=== PATIENT | female | born 1935 | race Caucasian/White ===

== ENCOUNTER 2017-08-14 10:36 | Emergency (ER) | payer MEDICARE, OTHER ==
[~2017-08-14] VITALS: Ht 157.5 cm; Wt 46.7 kg
[2017-08-14 11:02] VITALS: BP 148/87
[2017-08-14] MEDS ORDERED: Hydrogen Peroxide 473ml Bottle TOPIC ONE ×2 (11:40→11:45)
[2017-08-14] MEDS ORDERED: Tetanus/Diptheria/Pertussis Vaccine 0.5ml Syr IM ONE (12:00)
[2017-08-14] MEDS ORDERED: Bacitracin Oint UD TOPIC ONE ×2 (12:09→12:15)
[2017-08-14] MEDS ORDERED: CIPROFLOXACIN500 M2 ORAL (13:08)
[2017-08-14] MEDS ORDERED: Ciprofloxacin 500mg tab ORAL ONE (13:15)
[2017-08-14] MEDS ORDERED: Cephalexin 500mg cap ORAL ONE (13:15)
[2017-08-14 13:30] VITALS: BP 140/79
--- NOTE | 2017-08-14 13:33 | Diagnostic Imaging Report ---
Indication: PAIN Technique: 3 views left hand Comparison: none Findings: There are degenerative changes of the second through fifth distal interphalangeal joints. The bones are osteoporotic. No acute fractures. No dislocations. There are degenerative changes of the first and second carpometacarpal joints Impression: No acute bony trauma Degenerative changes, as described
[2017-08-15] MEDS ORDERED: ACETAMINOPHEN-1 EAC1 ORAL (11:27)
--- NOTE | 2017-08-16 08:37 | Emergency Room Report ---
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[employer] When she injured her finger there was active bleeding which was somewhat controlled with pressure Patient denies any injury to the wrist or elbow Pain is 6/10 with touch Denies any loss of consciousness Allergies: Coded Allergies: No Known Allergies (Unverified , 08/14/17) Patient History Past Medical History: see triage record Pertinent Family History: none Last Menstrual Period: n/a Reviewed Nursing Documentation: PMH: Agreed, PSxH: Agreed Nursing Documentation-PMH Hx Cancer: Yes - bilat masection Review of Systems All Other Systems: negative except mentioned in HPI Physical Exam Vital Signs Date Time Temp Pulse Resp B/P (MAP) Pulse Ox O2 Delivery O2 Flow Rate FiO2 08/14/17 10:46 97.9 77 18 148/87 99 Room Air Sp02 EP Interpretation: reviewed, normal General Appearance: well appearing, no apparent distress Head: normocephalic, atraumatic Eyes: bilateral eye PERRL, bilateral eye EOMI ENT: normal pharynx Neck: supple Respiratory: lungs clear, normal breath sounds Cardiovascular #1: regular rate, rhythm Musculoskeletal: other - Patient has laceration distal left index finger, total length is approximately 3 cm, tender - To palpation however the patient has appropriate full flexion extension at the distal digit Neurologic: alert, oriented x3 Skin: other - On the palmar aspect patient has 2 lacerations on either side of the index finger towards the palmar aspect, there is also a flap that is produced in the mid point, total length equals approximately 3 cm Lymphatic: no adenopathy Procedures Laceration/Wound Repair Laceration/Wound Repair : Consent: Verbal Wound Location: upper extremity Wound's Depth, Shape: irregular Wound Length (cm): 3 Wound Explored: clean Irrigated w/ Saline (ccs): 250 Betadine Prep?: Yes Anesthesia: 1% Lidocaine Volume Anesthetic (ccs): 4 Wound Debrided: moderate Wound Repaired With: sutures Suture Size/Type: 5:0 Number of Sutures: 12 Layer Closure?: No Sterile Dressing Applied?: Yes Splint Applied?: Yes Type of Splint Applied: Finger splint applied, it does immobilize the finger well, patient remains Patient Tolerated: Well Complications: None Progress The laceration is fairly irregular, required interrupted sutures on either side of the finger along with the flap, we were able to make appropriate approximation however Medical Decision Making Diagnostic Impression: Primary Impression: finger laceration Additional Impression: open finger fracture ER Course Given the patient's presentation Imaging study was also obtained Copious irrigation and wound care was addressed Please refer to the laceration note for the repair Given the evidence of fracture on the imaging This complicates the presentation making it an open fracture Patient was placed on antibiotics and requires close outpatient followup Other X-Ray Diagnostic Results Other X-Ray Diagnostic Results : X-Ray ordered: left hand # of Views/Limited Vs Complete: 2 View Indication: Pain EP Interpretation: Yes Interpretation: no dislocation, no soft tissue swelling, other - Distal phalangeal fracture second digit Impression: Other - Acute fracture and soft tissue changes Electronically Signed by: Jyoti Freeman DO Last Vital Signs Date Time Temp Pulse Resp B/P (MAP) Pulse Ox O2 Delivery O2 Flow Rate FiO2 08/14/17 13:30 97.9 18 140/79 99 Room Air 08/14/17 10:46 77 Status: improved Disposition: HOME, SELF-CARE Condition: Improved Scripts Ciprofloxacin Hcl* (CIPROFLOXACIN HCL*) 500 Mg Tablet 500 MG ORAL Q12H, #20 TAB 0 Refills Prov: JYOTI FREEMAN D.O. 08/14/17 Referrals: NON PHYSICIAN (PCP) Patient Instructions: Laceration Care, Adult, Finger Fracture, [id number] Additional Instructions: Patient is provided with the discharge instructions notified to follow up with primary doctor in the next 2-3 days otherwise return to the er with any worsening symptoms. Please note that this report is being documented using [employer] technology. This can lead to erroneous entry secondary to incorrect interpretation by the dictating instrument. JYOTI FREEMAN D.O. Aug 16, 2017 08:37
== END 2017-08-14 13:20 | disposition home or self-care (01) ==
LOC: EMR 11:10
DX: S62.601B Fracture of unspecified phalanx of left index finger, initial encounter for open fracture (principal); W27.4XXA Contact with kitchen utensil, initial encounter; Y92.89 Other specified places as the place of occurrence of the external cause; Z23 Encounter for immunization
CPT/HCPCS: 90471; 90715; 99284

== ENCOUNTER 2017-08-15 10:11 | Emergency (ER) | payer MEDICARE, OTHER ==
[~2017-08-15] VITALS: Ht 157.5 cm; Wt 54.4 kg
[~2017-08-15 10:11] MED LIST: CIPROFLOXACIN500 M2 ORAL
[2017-08-15 11:04] VITALS: BP 122/70
[2017-08-15] MEDS ORDERED: ACETAMINOPHEN-1 EAC1 ORAL (11:27)
[2017-08-15 11:30] VITALS: BP 122/70
--- NOTE | 2017-08-15 12:17 | Emergency Room Report ---
History of Present Illness General Chief Complaint: Wound Recheck/Suture Removal Source: Patient Present Illness HPI [id number] presents for wound check had lac repair yesterday of left index finger Was instructed to followup with PMD in 4 days, keep bandage on Patient states that its still bleeding States still has a lot of pain from lac, pain med not helping Denies fever/chills, pus drainage from wound Xray was negative for fx Allergies: Coded Allergies: No Known Allergies (Unverified , 08/14/17) Patient History Past Medical History: see triage record, old chart reviewed Past Surgical History: none Pertinent Family History: none Now: No Immunizations: UTD Reviewed Nursing Documentation: PMH: Agreed, PSxH: Agreed Nursing Documentation-PMH Hx Cancer: Yes - bilat masection Review of Systems All Other Systems: negative except mentioned in HPI Physical Exam Vital Signs Date Time Temp Pulse Resp B/P (MAP) Pulse Ox O2 Delivery O2 Flow Rate FiO2 08/15/17 10:20 97.9 76 20 132/77 100 Room Air Sp02 EP Interpretation: reviewed, normal General Appearance: normal inspection, well appearing, no apparent distress, alert, GCS 15, non-toxic Head: normocephalic, atraumatic Eyes: bilateral eye PERRL, bilateral eye EOMI ENT: normal ENT inspection, hearing grossly normal, normal voice Neck: normal inspection, full range of motion, supple, no bony tend Respiratory: normal inspection, lungs clear, normal breath sounds, no respiratory distress, no retraction, no wheezing Cardiovascular #1: regular rate, rhythm, no edema Gastrointestinal: normal inspection, normal bowel sounds, non tender, soft, no guarding, no hernia Genitourinary: no CVA tenderness Musculoskeletal: normal inspection, back normal, normal range of motion, Ruthie' s Sign negative, other - Left hand: wound unwrapped and splint removed. No active bleeding. No dehiscence. Sutures well approximated, healing well. No sign of infection. Neurologic: normal inspection, alert, oriented x3, responsive, client success manager III-XII nml as tested, motor strength/tone normal, speech normal Psychiatric: normal inspection, judgement/insight normal, mood/affect normal Skin: normal inspection, normal color, no rash Medical Decision Making Diagnostic Impression: Primary Impression: Encounter for wound re-check ER Course No active bleeding or infection Healing well Wound re-wrapped with splint reapplied for protection Rx T3 PMD followup in 3- 4 days DC home Last Vital Signs Date Time Temp Pulse Resp B/P (MAP) Pulse Ox O2 Delivery O2 Flow Rate FiO2 08/15/17 11:04 98.0 64 20 122/70 99 Room Air Status: improved Disposition: HOME, SELF-CARE Condition: Improved Scripts Acetaminophen With Codeine (T#3) (TYLENOL #3 TAB*) Y Tab 1 TAB ORAL Q8H Y for finger pain for 7 Days, #20 TAB Prov: MARV PAIGE M.D. 08/15/17 Referrals: NON PHYSICIAN (PCP) Patient Instructions: Wound Check Additional Instructions: - Keep dressing on until you follow up with your doctor - Keep warm/dry - Take Tylenol with codeine for severe pain MARV PAIGE M.D. Aug 15, 2017 12:17
== END 2017-08-15 11:30 | disposition home or self-care (01) ==
LOC: EMR 11:05
DX: S61.211D Laceration without foreign body of left index finger without damage to nail, subsequent encounter (principal); X58.XXXD Exposure to other specified factors, subsequent encounter; Z85.9 Personal history of malignant neoplasm, unspecified
CPT/HCPCS: 99281

== ENCOUNTER 2017-08-21 09:44 | Emergency (ER) | payer MEDICARE, OTHER ==
[~2017-08-21] VITALS: Ht 157.5 cm; Wt 47.6 kg
[~2017-08-21 09:44] MED LIST changes: +ACETAMINOPHEN-1 EAC1 ORAL
[2017-08-21] MEDS ORDERED: CIPRO500 MG PO (10:10)
[2017-08-21] MEDS ORDERED: Bacitracin Oint UD TOPIC ONE (10:15)
[2017-08-21 10:27] VITALS: BP_SYST 148; BP_DIAS 86; BP_DIAS 88
--- NOTE | 2017-08-26 14:32 | Emergency Room Report ---
History of Present Illness General Chief Complaint: Wound Recheck/Suture Removal Source: Patient, Medical Record Present Illness HPI Patient presents for a wound recheck Patient was here on her initial visit I do remember seeing the patient for her finger laceration Left index finger This is an open fracture At this time the patient reports that she has not seen any specialty followup She reports seeing her primary physician who stopped the antibiotics and is having further followup Patient denies any fevers denies any redness apparently there was some mild bleeding initially and she had return to the ER initially for that however feels improved with that Allergies: Coded Allergies: No Known Allergies (Unverified , 08/14/17) Patient History Past Medical History: see triage record Pertinent Family History: none Reviewed Nursing Documentation: PMH: Agreed, PSxH: Agreed Nursing Documentation-PMH Past Medical History: No Stated History Hx Cancer: Yes - bilateral mastectomy Review of Systems All Other Systems: negative except mentioned in HPI Physical Exam Vital Signs Date Time Temp Pulse Resp B/P (MAP) Pulse Ox O2 Delivery O2 Flow Rate FiO2 08/21/17 09:46 97.5 71 14 148/86 96 Room Air Sp02 EP Interpretation: reviewed, normal General Appearance: well appearing, no apparent distress Head: normocephalic, atraumatic ENT: normal pharynx Neck: supple Respiratory: lungs clear Cardiovascular #1: normal inspection, no edema, no gallop Gastrointestinal: non tender, soft Musculoskeletal: other - Suture in place distal left index finger, healing well , no signs of any dehiscence no erythema mild secondary swelling is noted appears to be appropriate healing Neurologic: alert, oriented x3 Skin: other - as above Lymphatic: no adenopathy Medical Decision Making Diagnostic Impression: Primary Impression: Encounter for wound re-check ER Course The wound appears to be healing well and appropriately However given the circumstances and the complex of the of the laceration along with a open fracture aspect Patient was again discussed that the importance of specialty hand followup It appears that she has not received any referral from her primary Therefore patient was provided the name throughout facility and will followup today for further eval Last Vital Signs Date Time Temp Pulse Resp B/P (MAP) Pulse Ox O2 Delivery O2 Flow Rate FiO2 08/21/17 10:27 97.5 14 148/86 96 Room Air 08/21/17 10:27 70 Status: improved Disposition: HOME, SELF-CARE Condition: Stable Scripts Ciprofloxacin* (CIPRO*) 500 Mg Tablet 500 MG PO BID, #14 TAB Prov: SETH FREEMAN D.O. 08/21/17 Referrals: NON PHYSICIAN (PCP) RUTHANN MUÑIZ M.D. Patient Instructions: Wound Check Additional Instructions: you have presented for wound check. It was discussed the importance of initial specialty followup from your primary physician. Unfortunately you have mentioned that you have not seen any other specialty followup. This is very concerning. Attempt was made to discuss the case with your primary physician, however he is not in the office and not available by phone. Your fracture of the finger is extremely concerning, this was complicated with large complex laceration. Currently there is no signs of any infection, however you do need to continue on antibiotics. Hand specialty referral has been provided for you at this time. The importance of this cannot be anymore reiterated. SETH FREEMAN D.O. Aug 26, 2017 14:32
== END 2017-08-21 10:27 | disposition home or self-care (01) ==
LOC: EMR 10:07
DX: S61.211D Laceration without foreign body of left index finger without damage to nail, subsequent encounter (principal); X58.XXXD Exposure to other specified factors, subsequent encounter; Z85.3 Personal history of malignant neoplasm of breast; Z90.13 Acquired absence of bilateral breasts and nipples
CPT/HCPCS: 99283

== ENCOUNTER 2018-01-15 10:14 | Emergency (ER) | payer MEDICARE, OTHER ==
[~2018-01-15] VITALS: Ht 157.5 cm; Wt 59.0 kg
[~2018-01-15 10:14] MED LIST changes: +CIPRO500 MG PO
[2018-01-15] MEDS ORDERED: Ketorolac 30mg Inj IV ONE (10:30)
[2018-01-15] MEDS: Morphine Sulfate 2mg/ml Inj IVP ONE ×2 (10:47→11:10)
[2018-01-15 10:56] VITALS: BP 132/76
[2018-01-15 10:59] LABS: BASOPHILS % (AUTO) 1.4 % (0.0-2.0); HEMOGLOBIN 13.9 G/DL (12.0-16.0); LYMPHOCYTES % (AUTO) 26.9 % (20.0-45.0); MEAN CORPUSCULAR VOLUME 92 FL (80-99); MONOCYTES % (AUTO) 5.9 % (1.0-10.0); NEUTROPHILS % (AUTO) 61.8 % (45.0-75.0); PLATELET COUNT 163 K/UL (150-450); RED BLOOD COUNT 4.55 M/UL (4.20-5.40); RED CELL DISTRIBUTION WIDTH 12.3 % (11.6-14.8)
[2018-01-15] MEDS ORDERED: Morphine Sulfate 4mg/ml Inj IVP ONE (11:15)
[2018-01-15 11:24] LABS: ANION GAP 7 mmol/L (5-15); BLOOD UREA NITROGEN 14 mg/dL (7-18); CALCIUM 9.3 MG/DL (8.5-10.1); CARBON DIOXIDE 28 MMOL/L (21-32); CHLORIDE 103 MMOL/L (98-107); CREATININE 0.9 MG/DL (0.55-1.30); POTASSIUM 4.1 MMOL/L (3.5-5.1); SODIUM 138 MMOL/L (136-145)
--- NOTE | 2018-01-15 11:25 | Diagnostic Imaging Report ---
Indications: Pain, status post fall Technique: Two views of the left humerus Comparison: None Findings: There is an oblique slightly comminuted fracture of the proximal humeral diaphysis. This overrides by 1 to 2 cm, is displaced medially by one bone width. No other fractures are demonstrated Impression: Positive for proximal humeral fracture
[2018-01-15 11:29] LABS: ALANINE AMINOTRANSFERASE 23 U/L (12-78); ALBUMIN 3.7 G/DL (3.4-5.0); ALBUMIN/GLOBULIN RATIO 1.1 (1.0-2.7); ALKALINE PHOSPHATASE 72 U/L (46-116); ASPARTATE AMINO TRANSFERASE 19 U/L (15-37); BILIRUBIN,TOTAL 0.5 MG/DL (0.2-1.0)
--- NOTE | 2018-01-15 12:50 | Emergency Room Report ---
History of Present Illness General Chief Complaint: Multiple Trauma/Fall Source: Patient, Medical Record, EMS Present Illness HPI Patient lost balance and fell backwards catching herself with her L arm. No LOC. Immediate pain in arm. Swelling there. No numbness. No back, head, neck pain. Not on blood thinners. Pain rated at 10/10, constant and aching. No chest pain, palpitations, NVD, headache, other extremity pain. On cipro for UTI. No fevers. Allergies: Coded Allergies: No Known Allergies (Unverified , 08/14/17) Patient History Past Medical History: see triage record Past Surgical History: other - masectomies Social History Narrative with son Reviewed Nursing Documentation: PMH: Agreed, PSxH: Agreed Nursing Documentation-PMH Hx Cancer: Yes - bilateral mastectomy Review of Systems All Other Systems: negative except mentioned in HPI Physical Exam Vital Signs Date Time Temp Pulse Resp B/P (MAP) Pulse Ox O2 Delivery O2 Flow Rate FiO2 01/15/18 10:14 96.6 77 16 132/76 97 Room Air 96.6 General Appearance: well appearing, no apparent distress, GCS 15 Head: normocephalic, atraumatic Eyes: bilateral eye normal inspection, bilateral eye PERRL ENT: hearing grossly normal, normal voice, moist mucus membranes Neck: full range of motion, supple Respiratory: lungs clear, no respiratory distress, speaking full sentences Cardiovascular #1: regular rate, rhythm Cardiovascular #2: 2+ radial (L) - capillary fill normal Gastrointestinal: non tender Genitourinary: no CVA tenderness Musculoskeletal: no calf tenderness, pelvis stable, swelling - mid upper arm L with decreased ROM due to pain Neurologic: alert, motor strength/tone normal, sensory intact, normal gait, speech normal, other - radium, ulna and median nerves normal Psychiatric: mood/affect normal Skin: no rash Medical Decision Making Diagnostic Impression: Primary Impression: Humeral shaft fracture Qualified Codes: S42.342A - Displaced spiral fracture of shaft of humerus, left arm, initial encounter for closed fracture Additional Impression: Fall Qualified Codes: W19.XXXA - Unspecified fall, initial encounter ER Course Patient with L arm pain post fall, non-syncopal. DDx: fx, contusion, sprain. Exam most c/w fx. Focus on analgesia and xrays. Pre-op labs performed. Initially refused analgesia. Encouraged to take with improvement. Fx humerus. Discussed with Dr. Chicas who wants to see patient as outpatient. Shoulder immobilizer applied. Improved pain. Neurovasc normal (including radial nerve). Stable for outpatient observation and treatment. (Called with difficulty filling [place] at [facility] - Rx for tramadol given.) Laboratory Tests Test 01/15/18 10:45 White Blood Count 5.0 K/UL (4.8-10.8) Red Blood Count 4.55 M/UL (4.20-5.40) Hemoglobin 13.9 G/DL (12.0-16.0) Hematocrit 42.0 % (37.0-47.0) Mean Corpuscular Volume 92 FL (80-99) Mean Corpuscular Hemoglobin 30.4 PG (27.0-31.0) Mean Corpuscular Hemoglobin Concent 33.0 G/DL (32.0-36.0) Red Cell Distribution Width 12.3 % (11.6-14.8) Platelet Count 163 K/UL (150-450) Mean Platelet Volume 7.6 FL (6.5-10.1) Neutrophils (%) (Auto) 61.8 % (45.0-75.0) Lymphocytes (%) (Auto) 26.9 % (20.0-45.0) Monocytes (%) (Auto) 5.9 % (1.0-10.0) Eosinophils (%) (Auto) 4.0 % (0.0-3.0) H Basophils (%) (Auto) 1.4 % (0.0-2.0) Prothrombin Time 10.0 SEC (9.30-11.50) Prothrombin Time INR 1.0 (0.9-1.1) PTT 23 SEC (23-33) Sodium Level 138 MMOL/L (136-145) Potassium Level 4.1 MMOL/L (3.5-5.1) Chloride Level 103 MMOL/L (98-107) Carbon Dioxide Level 28 MMOL/L (21-32) Anion Gap 7 mmol/L (5-15) Blood Urea Nitrogen 14 mg/dL (7-18) Creatinine 0.9 MG/DL (0.55-1.30) Estimate Glomerular Filtration Rate mL/min (>60) Glucose Level 101 MG/DL (74-106) Calcium Level 9.3 MG/DL (8.5-10.1) Total Bilirubin 0.5 MG/DL (0.2-1.0) Aspartate Amino Transferase (AST) 19 U/L (15-37) Alanine Aminotransferase (ALT) 23 U/L (12-78) Alkaline Phosphatase 72 U/L (46-116) Total Protein 7.1 G/DL (6.4-8.2) Albumin 3.7 G/DL (3.4-5.0) Globulin 3.4 g/dL Albumin/Globulin Ratio 1.1 (1.0-2.7) EKG Diagnostic Results Rate: normal Rhythm: NSR ST Segments: no acute changes Rhythm Strip Diag. Results EP Interpretation: yes Rhythm: NSR, no PVC's, no ectopy Other X-Ray Diagnostic Results Other X-Ray Diagnostic Results : X-Ray ordered: humerus # of Views/Limited Vs Complete: 3 View Indication: Pain EP Interpretation: Yes Interpretation: no dislocation, other - fx and STS Impression: Other Electronically Signed by: Cecil Magdaleno MD Last Vital Signs Date Time Temp Pulse Resp B/P (MAP) Pulse Ox O2 Delivery O2 Flow Rate FiO2 01/15/18 13:11 98.5 77 16 132/76 97 Room Air 205.9 Status: improved Disposition: HOME, SELF-CARE Condition: Improved Scripts Ibuprofen* (MOTRIN*) 600 Mg Tablet 600 MG ORAL Q6H Y for For Pain, #20 TAB Prov: Cecil Magdaleno M.D. 01/15/18 Hydrocodone Bit/Acetaminophen 5-325* (NORCO 5-325*) 1 Each Tablet 1 TAB ORAL Q6H Y for For Pain, #16 TAB 0 Refills Prov: Cecil Magdaleno M.D. 01/15/18 Referrals: NOT CHOSEN MOUNA/,REFERRING (PCP) Cecil Magdaleno M.D. Jan 15, 2018 12:50
[2018-01-15] MEDS ORDERED: IBUPROFEN600 MG ORAL (12:52)
[2018-01-15] MEDS ORDERED: NORCO 5-325 TA1 EACH ORAL (12:52)
[2018-01-15 13:11] VITALS: BP 132/76
--- NOTE | 2018-01-28 17:05 | Cardiology Report ---
APPROVED REPORT EKG Measurement Heart [id number] FL [id number] [id number] Normal sinus rhythm Normal ECG
== END 2018-01-15 13:26 | disposition home or self-care (01) ==
LOC: EDBD 10:14 → EMR 10:41
DX: S42.352A Displaced comminuted fracture of shaft of humerus, left arm, initial encounter for closed fracture (principal); W19.XXXA Unspecified fall, initial encounter; Y92.9 Unspecified place or not applicable; Z85.3 Personal history of malignant neoplasm of breast; Z90.13 Acquired absence of bilateral breasts and nipples
CPT/HCPCS: 36415; 73060; 80053; 85025; 85610; 85730; 93005; 96374; 96375; 99284; J1885; J2270; J2405